=== PATIENT | female | born 1995 | race Caucasian/White ===

== ENCOUNTER 2020-02-01 20:11 | Emergency (ER) | payer OTHER, SELFPAY ==
--- NOTE | 2020-02-01 20:21 | XR_ITS ---
PROCEDURE: XR HAND LT MIN 3V CLINICAL INDICATION: INJURY TO INDEX FINGER Posttraumatic pain COMPARISON: No exams were available for comparison FINDINGS: No fracture or dislocation. No lytic or blastic change. There is normal mineralization. The joint spaces are well-preserved. No significant degenerative/arthritic changes. No erosive changes evident. Other findings:None. IMPRESSION: No acute findings. Dictated by: Shay English MD 02/02/2020 06:21 Electronically signed by Shay English MD in [place] 02/02/2020 06:21
[2020-02-01 20:42] VITALS: BP 120/74; PULSE 82; RESP 20; TEMP 36.7; O2SAT 98; BMI 17.4
--- NOTE | 2020-02-01 20:51 | HMH.EDUTC ---
[facility] [place] Clinical Impression: Injury of left index finger Qualifiers: Encounter type: initial encounter Qualified Code(s): S69.92XA - Unspecified injury of left wrist, hand and finger(s), initial encounter Disposition: Home, Self-Care Condition on Discharge: Good Instructions: Finger Sprain, DI for Finger Sprain, How To Perform RICE (Rest, Ice, Compress, Elevate), Bacitracin Topical Additional Instructions: Make sure to clean abrasions on index finger well with antibacterial soap and water multiple times daily and apply Bacitracin as prescribed *Watch nail area for discoloration, bleeding or signs of infection *Follow up with Family Doctor if no improvement or any worsening of symptoms Follow up to have broken acrylic nail removed as advised Straight to ER if any life threatening symptoms Ice to area for about 20 minutes every couple hours may help with swelling and pain Over the counter Motrin and/or Tylenol as directed on package for pain Return if needed Prescriptions: Bacitracin [Bacitracin Oint 0.9GM UDP] 1 each TP TID 10 Days #30 packet Transmission Status: Pending to [id number] Referrals: Charisma Chavis MD [Primary Care Provider] - Forms: Work/School Release Time of Disposition: 21:09 Medical Decision Making - Fito Inquiry Pt receiving controlled substance: No Fito was queried for this patient: No Vital Signs: 02/01/20 20:42 02/01/20 21:07 Temperature 98.1 F 98.1 F Temperature Source Oral Pulse Rate 82 Pulse Rate [Right Brachial] 82 Respiratory Rate 20 20 Blood Pressure 120/74 Blood Pressure [Right Arm] 120/74 Blood Pressure Mean [Right Arm] 89 Blood Pressure Source [Right Arm] Automatic Cuff Blood Pressure Position [Right Arm] Sitting 02 Sat by Pulse Oximetry 98 Oxygen Delivery Method Room Air Orders (Tests/Meds): ORDERS Category Date Time Status XR hand LT min 3V Stat Exams 02/01/20 20:21 Taken - Radiology Data #1 Image(s): Hand Image Reviewed: Yes I reviewed the patient's radiology image Preliminary Findings: No Fracture Seen Medical Decision Narrative: acrylic nail on left index finger cracked, no bleeding noted under nail area and nailbed area appears intact with nail stable no movement noted when touched. Finger soaked and area cleaned well with hibacleanse and saline and neosporin placed around nail bed area, Patient educated to watch for signs of infection and follow up with Family Doctor immediately if any seen [facility] H[place] - General Stated complaint: [id number] injured L index finger Time Seen by Provider: 02/01/20 20:40 Mode of Arrival: Ambulatory Source of Information: Patient Limitations: No Limitations Description of Symptoms (Recalled from Triage Doc. by RN): PATIENT C/O LEFT INDEX FINGER INJURY. 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 States that she had her hand close to the stamp when it came down and stamped on her left index finger States that she has on acrylic nails and it broke her nail and caused some abrasions to the finger and around her nailbed States that she continued to work for about 3 hours and they made her come up and get it checked - Related Data Home Medications Medication Instructions Recorded Confirmed norethindrone (contraceptive) 0.35 0.35 mg PO DAILY 08/13/18 02/01/20 mg tablet Previous Rx's Medication Instructions Recorded Bacitracin [Bacitracin Oint 0.9GM 1 each TP TID 10 Days #30 packet 02/01/20 UDP] Allergies Allergy/AdvReac Type Severity Reaction Status Date / Time No Known Allergies Allergy Verified 08/13/18
[2020-02-01 21:07] VITALS: BP 120/74; PULSE 82; RESP 20; TEMP 36.7; O2SAT 98
== END 2020-02-01 21:17 | disposition home or self-care (01) ==
PROVIDERS: Emergency Provider Nurse Practitioner; PCP Nurse Practitioner
DX: S60.411A Abrasion of left index finger, initial encounter (principal); W31.89XA Contact with other specified machinery, initial encounter; Y92.63 Factory as the place of occurrence of the external cause; Y99.0 Civilian activity done for income or pay
CPT/HCPCS: 73130; 99201

== ENCOUNTER 2022-04-15 14:09 | Emergency (ER) | payer SELFPAY ==
[2022-04-15 14:10] VITALS: BP 125/71; PULSE 97; RESP 17; TEMP 36.7; O2SAT 99; BMI 19.8
--- NOTE | 2022-04-15 14:17 | PC.NURSE ---
ED MD AT BEDSIDE FOR EVALUATION
--- NOTE | 2022-04-15 14:21 | HMH.EDUROGF ---
Discharge Plan Disposition Patient Disposition: Home, Self-Care Condition: Good Chief Complaint: Vaginal Bleeding Prescriptions Prescriptions: No Action norethindrone (contraceptive) [Linda] 0.35 mg tablet 0.35 mg PO DAILY bacitracin 1 EACH packet 1 each TP TID 10 Days Qty: 30 0RF Rx Instructions: apply to abrasions and around nailbed three times daily Referrals Follow up/Referrals: Provider,Referral, MD [Primary Care Provider] - See instructions Activity Restrictions/Add. Instructions Additional Instructions/Restrictions: Please follow-up with your primary care physician and/or local company flatbed truck driver as scheduled. Return to the emergency department if you feel worse in any way. During your examination today I noticed that your cervix was somewhat friable. You started bleeding during the examination. I do not believe that the blood is coming from within the uterus (your ). However, it is very important that you follow-up with your merchandising stock associate/local company flatbed truck driver to have this checked out in more detail than I am able to do in the emergency department. Please return to the emergency department if you start feeling abdominal pain or cramps. I have ordered a quantitative hormone level test. This test is not back yet. However when you go see your local company flatbed truck driver the results should be back and your local company flatbed truck driver can obtain these results from this hospital if needed. Clinical Impressions Clinical Impression: Vaginal bleeding Instructions Patient Instructions: DI for Vaginal Bleeding Discharge ED Provider: Rey Cespedes Female Urogenital HPI General Chief complaint: Vaginal Bleeding Stated complaint: 10 weeks, dark brown to red discharge Time Seen by Provider: 04/15/22 14:21 Mode of Arrival: Ambulatory Limitations: No Limitations Description of Symptoms (Recalled from ER Triage Doc. by RN): PT ABOUT 10 WEEKS , REPORTS DARK BROWN VAGINAL DISCHARGE X 2 WEEKS History of Present Illness HPI Narrative: The patient presents to the emergency department complaining of a 2-week history of some dark brown vaginal discharge. She is approximately 10 weeks . She has been seen at about 8 weeks gestational age and had an ultrasound done which showed an intrauterine with a normal heartbeat. She denies any pain. She denies any dysuria. Related Data Home Medications Medication Instructions Recorded Confirmed norethindrone (contraceptive) 0.35 0.35 mg PO DAILY control 08/13/1801/31/ mg tablet (Linda) Previous Rx's Medication Instructions Recorded bacitracin 500 unit/gram topical 1 each TP TID 10 days #30 packets 02/01/20 packet Allergies Allergy/AdvReac Type Severity Reaction Status Date / Time No Known Allergies Allergy Verified 08/13/18 12:16 [facility] Medical History (Updated 04/15/22 @ 16:20 by Rey Cespedes MD) No significant past medical history Family History Other No significant family history Social History (Updated 04/15/22 @ 14:23 by Mary Wilkinson RN) Smoking Status: Never smoker alcohol intake: never current occupational status: other Travel in the last 8 weeks: None ROS Obtained: Yes All systems reviewed & no additional complaints except as documented Physical Exam General General appearance: alert and in no apparent distress Head Head exam: atraumatic, normocephalic and normal inspection Eye Eye exam: Present normal appearance, PERRL and EOMI ENT ENT exam: Present normal exam, normal oropharynx, mucous membranes moist, TM's normal bilaterally and normal external ear exam Neck Neck exam: Present normal inspection, full ROM and trachea midline; Absent meningismus or lymphadenopathy Chest Chest inspection: Present normal inspection and symmetric chest wall rise; Absent tenderness Respiratory Respiratory exam: Present normal lung sounds bilaterally; Absen
--- NOTE | 2022-04-15 14:30 | PC.NURSE ---
PT PLACED IN GOWN AND BLANKET PROVIDED
[2022-04-15 14:37] LABS: Basophils # 0.1 K/mm3 (0-0.2); Basophils % 0.7 % (0.1-2.0); Eosinophils # 0.1 K/mm3 (0.0-0.4); Eosinophils % 0.8 % (0.1-12.0); Hematocrit 39.7 % (37.0-47.0); Hemoglobin 12.8 g/dL (12.2-16.2); Lymphocytes # 1.6 K/mm3 (0.7-4.5); Lymphocytes % 20.6 % (10-50); Mean Corpuscular HGB Conc 32.3 g/dL (31.8-35.4); Mean Corpuscular Hemoglobin 29.9 pg (27.0-31.2); Mean Corpuscular Volume 92.7 fl (81-99); Mean Platelet Volume 8.2 fl (7.4-10.4); Monocytes # 0.4 K/mm3 (0.1-1.0); Monocytes % 4.7 % (1.7-9.3); Neutrophils # 5.8 K/mm3 (1.8-7.8); Neutrophils % 73.2 % (37.0-80.0); Platelet Count 216 K/mm3 (142-424); Red Blood Count 4.29 M/mm3 (4.20-5.40); Red Cell Distribution Width 13.7 % (11.5-17.5)
--- NOTE | 2022-04-15 14:38 | PC.NURSE ---
RN AT BEDSIDE WITH MD TO PERFORM VAG EXAM
[2022-04-15 14:44] LABS: Anion Gap 15.3 mEq/L (5-15); Blood Urea Nitrogen 8 mg/dl (7-17); Carbon Dioxide 28 mmol/L (22.0-30.0); Chloride 98 mmol/L (98-107); Creatinine Clearance Estimated 140 mL/min (50-200); Estimated Glomerular Filt Rate 121 ml/min (>60); GFR (African American) 146 ML/MIN (>60); Glucose 172 mg/dl (74-100); Potassium 3.3 mmoL/L (3.5-5.1); Sodium 138 mmol/L (136-145)
[2022-04-15 14:47] LABS: Activated Partial Thrombo Time 25.5 seconds (22.8-30.6); INR 0.96 (0.9-1.1); Prothrombin Time 10.4 seconds (10.1-12.5)
[2022-04-15 15:02] VITALS: BP 96/63; PULSE 100; O2SAT 97
[2022-04-15 15:27] VITALS: BP 125/72; PULSE 85; O2SAT 97
--- NOTE | 2022-04-15 16:15 | PC.NURSE ---
ED MD AT BEDSIDE TO DISCUSS POC WITH PT
[2022-04-15 16:40] VITALS: BP 122/70; PULSE 84; RESP 16; TEMP 36.8; O2SAT 100
[2022-04-15 16:52] LABS: HCG,Quantitative 3247 mIU/ml (0-5.42)
== END 2022-04-15 16:45 | disposition home or self-care (01) ==
PROVIDERS: Emergency Provider Emergency Medicine
DX: O46.91 Antepartum hemorrhage, unspecified, first trimester (principal); Z3A.10 10 weeks gestation of pregnancy
CPT/HCPCS: 80048; 84702; 85025; 85610; 85730; 86900; 86901; 99283